=== PATIENT | male | born 1955 | race African-American/Black ===

== ENCOUNTER 2016-09-10 11:31 | Emergency (ER) | payer MEDICARE, MEDICAID ==
--- NOTE | 2016-09-13 16:46 | ER ---
ADMIT: 09/10/2016 RM/LOC: ER [facility] MR#: [id number] [address] [id number] JULIA DC [address] [place] [address] Emergency Room Report SEX: M AGE: 61 : 1955 DATE: 09/10/2016 ADDENDUM: A 61-year-old black male coming in with intermittent numbness of his left arm. This happens at night. He says , he just kind of moves his arm, hand and it goes away. He has no other associated findings. His chest x-ray, he has some retained shrapnel very small cervical rib. His neck did show some disk space narrowing, so he could actually have a little impingement that just occurs at night. At this time, we tried him on prednisone 20 b.i.d. for 5 days. Advised him that this is not anything that needs to be taken care of right now, but will need follow up. We did give him the on-call diet to follow up. CONDITION ON DISCHARGE: Good. Roosevelt Ding MD/ tona JOB #: [id number] CC: Roosevelt Ding MD, Attending Physician Kailash Nuñez MD, Family Physician
== END 2016-09-10 12:55 | disposition home or self-care (01) ==
LOC: ER 11:31
DX: M46.92 Unspecified inflammatory spondylopathy, cervical region (principal); F17.210 Nicotine dependence, cigarettes, uncomplicated; Z98.890 Other specified postprocedural states